=== PATIENT | female | born 1995 | race Caucasian/White ===

== ENCOUNTER 2021-02-06 21:41 | Emergency (ER) | payer OTHER, SELFPAY ==
[2021-02-06 21:44] VITALS: BP 132/92; PULSE 85; RESP 18; TEMP 36.3; O2SAT 100
[2021-02-06 22:17] LABS: Basophils Percent Auto 0.3 % (0.2-1.2); Eosinophils Absolute Auto 0.3 K/mm3 (0-0.3); Eosinophils Percent Auto 2.2 % (0-4.4); Hematocrit 36.4 % (37.0-47.0); Hemoglobin 11.8 g/dL (12.0-15.0); Immature Granulocyte Absolute 0.03 K/mm3 (0.00-0.031); Immature Granulocyte Percent A 0.2 % (0-0.5); Lymphocytes Absolute Auto 4.72 K/mm3 (0.9-3.2); Lymphocytes Percent Auto 37.6 % (18.3-44.2); Mean Corpuscular HGB Conc 32.4 g/dl (32-36); Mean Corpuscular Hemoglobin 26.9 pg (26-34); Mean Corpuscular Volume 82.9 fl (80-100); Mean Platelet Volume 10.4 fl (7.4-10.4); Neutrophils Absolute Auto 6.5 K/mm3 (1.3-6.7); Neutrophils Percent Auto 51.7 % (45.5-73.1); Platelet Count Result 334 k/mm3 (150-375); Red Blood Count 4.39 M/mm3 (4.2-5.4); Red Cell Distribution Width 14.7 % (11.5-14.5); White Blood Count 12.5 K/mm3 (4.5-10.0)
[2021-02-06 22:30] LABS: Alanine Aminotransferase 18 U/L (4-35); Albumin Level 4.2 g/dL (3.5-5.1); Alkaline Phosphatase 86 U/L (38-126); Anion Gap 9 mmol/L (8-16); Aspartate Amino Transferase 21 U/L (14-36); Bilirubin,Total 0.3 mg/dL (0.2-1.3); Blood Urea Nitrogen 14 mg/dL (7-17); Calcium 9.2 mg/dL (8.4-10.2); Carbon Dioxide 25 mmol/L (22-30); Chloride 106 mmol/L (98-107); Estimated CRCL calculation 112 ml/min; Estimated Glomerular Filt Rate > 60; Glucose 98 mg/dL (65-110); Lipase 97 U/L (23-300); Potassium 3.8 mmol/L (3.4-5.0); Sodium 140 mmol/L (137-145)
[2021-02-06] MEDS: SODIUM CHLORIDE 0.9% IV 1,000 ML 999 ML IV CONT (22:53)
[2021-02-06] MEDS: KETOROLAC 15 MG/ML VIAL (*BKC) IV PUSH (22:54)
[2021-02-06] MEDS: PANTOPRAZOLE SODIUM IV 40 MG VIAL IV PUSH (22:54)
[2021-02-06] MEDS: ONDANSETRON INJ 4 MG/2 ML VIAL IV PUSH (22:55)
[2021-02-06 23:07] VITALS: BP 98/74; PULSE 85; RESP 20; O2SAT 98
--- NOTE | 2021-02-06 23:10 | PC.NURSE ---
Pt reports seen last week c/o medial upper abd pain at urgent care. c/o pain and burning. worse with lying flat. given po antacid rx and told to go to ER if no improvement. Reports she initially saw improvement c daily meds, but after rx ran out, pain came back. now here c/o 8/10 pain.
[2021-02-06 23:14] LABS: Add Urine Microscopic? YES; Appearance Urine Cloudy (Clear); Bacteria Urine 4+ /hpf; Bilirubin Urine Negative (Negative); Blood Urine 3+ (Negative); Color Urine Red (Yellow); Glucose Urine UA Negative (Negative); Ketones Urine Negative (Negative); Leukocyte Esterase Ur 2+ LEU/UL (Negative); Mucus Urine Rare /lpf; Nitrate Urine Negative (Negative); Protein Urine 3+ mg/dL (Negative); RBC Urine >75 /hpf (0-2); Squamous Epithelial Cell Urine Many /hpf (Few); Urobilinogen Urine Negative mg/dL (<2.0); WBC Urine >75 /hpf
--- NOTE | 2021-02-06 23:25 | ED.GENADULT ---
HPI - General Adult General Chief complaint: Abdominal Pain Stated complaint: abd pain Time Seen by Provider: 02/06/21 21:57 History of Present Illness HPI narrative: Patient is a 26-year-old female presents the emergency department with chief complaint of epigastric pain. Patient reports that she has been having pain for several days was actually seen at [facility] and was on a 5-day course of a reflux medication. The patient states it helped somewhat but reports she has been still having discomfort. Patient states she is had prior history of a cholecystectomy reports that she is had no fevers no chills no diarrhea patient reports she is currently on her period. Patient reports symptoms or not improved by anything nor they worsened by anything. Related Data Allergies Allergy/AdvReac Type Severity Reaction Status Date / Time No Known Allergies Allergy Verified 02/06/21 21:41 Review of Systems Review of Systems: A 10 system review of systems was completed on the patient and is negative except for what is stated in the HPI. Nursing and ancillary documentation was reviewed. Exam Narrative: GENERAL: Well-appearing, well-nourished, and in no acute distress. HEAD: Normocephalic, atraumatic. EYES: PERRLA and EOMI. ENT: Nares clear, no rhinorrhea or epistaxis. Mucous membranes moist. NECK: Supple. CHEST: Clear to auscultation. No respiratory distress. HEART: Regular rate and rhythm. No murmur heard. Normal peripheral pulses. ABDOMEN: Soft, tender to palpation in the epigastric region, no tenderness in the right lower quadrant or left lower quadrant, nondistended, normal active bowel sounds. EXTREMITIES: Normal range of motion. No edema. SKIN: Warm, dry, no rash. NEURO: No focal deficits. Alert and oriented x3. PSYCH: Normal mood and affect. Course Course Emergency Course: White blood cell count was minimally elevated urinalysis shows evidence of UTI the RBCs in the urine are most likely secondary to the patient being on her menstrual period. Vital Signs Vital signs: Vital Signs Temperature 36.3 C L 02/06/21 21:44 Pulse Rate 85 02/06/21 21:44 Respiratory Rate 18 02/06/21 21:44 Blood Pressure 132/92 H 02/06/21 21:44 Pulse Oximetry 100 02/06/21 21:44 Temperature 36.3 C L 02/06/21 21:44 Pulse Rate 85 02/06/21 23:07 Respiratory Rate 20 02/06/21 23:07 Blood Pressure 98/74 L 02/06/21 23:07 Pulse Oximetry 98 02/06/21 23:07 Medical Decision Making Vital Signs Vital Signs: Vital Signs Temperature 36.3 C L 02/06/21 21:44 Pulse Rate 85 02/06/21 21:44 Respiratory Rate 18 02/06/21 21:44 Blood Pressure 132/92 H 02/06/21 21:44 Pulse Oximetry 100 02/06/21 21:44 Temperature 36.3 C L 02/06/21 21:44 Pulse Rate 85 02/06/21 23:07 Respiratory Rate 20 02/06/21 23:07 Blood Pressure 98/74 L 02/06/21 23:07 Pulse Oximetry 98 02/06/21 23:07 Lab Data Result diagrams: 02/06/21 22:12 02/06/21 22:12 Labs: Lab Results 02/06/21 02/06/21 02/06/21 Range/Units 22:12 22:12 22:20 WBC 12.5 H (4.5-10.0) K/mm3 RBC 4.39 (4.2-5.4) M/mm3 Hgb 11.8 L (12.0-15.0) g/dL Hct 36.4 L (37.0-47.0) % MCV 82.9 (80-100) fl MCH 26.9 (26-34) pg MCHC 32.4 (32-36) g/dl RDW 14.7 H (11.5-14.5) % Plt Count 334 (150-375) k/mm3 MPV 10.4 (7.4-10.4) fl Immature Gran % (Auto) 0.2 (0-0.5) % Neut % (Auto) 51.7 (45.5-73.1) % Lymph % (Auto) 37.6 (18.3-44.2) % [place] % (Auto) 8.0 (2.6-8.5) % Eos % (Auto) 2.2 (0-4.4) % Baso % (Auto) 0.3 (0.2-1.2) % Lymph # (Auto) 4.72 H (0.9-3.2) K/mm3 [place] # (Auto) 1.0 H (0.1-0.6) K/mm3 Eos # (Auto) 0.3 (0-0.3) K/mm3 Baso # (Auto) 0.0 (0.0-0.1) K/mm3 Abs Immat Gran (auto) 0.03 (0.00-0.031) K/mm3 Absolute Neuts (auto) 6.5 (1.3-6.7) K/mm3 Absolute Nucleated RBC 0.0 (0.0-0.012) K/mm3 Nucleated RBC % 0.0 (0.0-0.2) % Sodium 140
[2021-02-06] MEDS: CEPHALEXIN 500 MG CAPSULE PO (23:30)
[2021-02-06 23:50] VITALS: TEMP 36.7
== END 2021-02-06 23:51 | disposition home or self-care (01) ==
PROVIDERS: Emergency Provider Emergency Medicine
DX: N30.00 Acute cystitis without hematuria (principal)
CPT/HCPCS: 36415; 80053; 81001; 81025; 83690; 85025; 87077; 87086; 87088; 96361; 96374; 96375; 99284; A9270; C9113; J1885; J2405; J7030

== ENCOUNTER 2024-04-29 17:14 | Emergency (ER) | payer OTHER, SELFPAY ==
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
[2024-04-29 17:18] VITALS: BP 136/94; PULSE 104; RESP 18; TEMP 36.8; O2SAT 100
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
[2024-04-29 18:05] VITALS: BP 136/94; PULSE 104; RESP 18; TEMP 36.8; O2SAT 100
--- NOTE | 2024-04-29 18:07 | PC.NURSE ---
Patient provided resources upon discharge.
== END 2024-04-29 18:05 | disposition home or self-care (01) ==
PROVIDERS: Emergency Provider Emergency Medicine; PCP Family Medicine
DX: S63.615A Unspecified sprain of left ring finger, initial encounter (principal); Y04.8XXA Assault by other bodily force, initial encounter
CPT/HCPCS: 73130; 99283